=== PATIENT | male | born 1970 | race African-American/Black ===

== ENCOUNTER 2016-09-28 07:08 | Day surgery (SDC) | payer BC ==
[2016-09-28] VITALS (8 sets, daily range): BP systolic 110–192; BP diastolic 51–94; PULSE 55–68; RESP 18–20; TEMP 97.8–98.1; O2SAT 92–97
[~2016-09-28] VITALS: Ht 182.9 cm; Wt 90.9 kg
[2016-09-28] MEDS ORDERED: SODIUM CHLOR 0.9% 1000 ML IV SCH (08:15)
[2016-09-28] MEDS ORDERED: LIDOCAINE 1%/EPINEPHrine 1:100,000 SOLN 20 ML VIAL ONE (08:25)
[2016-09-28] MEDS ORDERED: fentaNYL CITRATE 250 MCG/5 ML AMP ONE (08:39)
[2016-09-28] MEDS ORDERED: MIDAZOLAM HCL 5 MG/5 ML VIAL ONE (08:39)
--- NOTE | 2016-09-28 09:43 | RADRPT ---
EXAM DATE/TIME: 09/28/2016 08:47 [place] COMPARISON: No previous studies available for comparison. INDICATIONS : Elevated liver functions SEDATION TIME: 30 minutes BIOPSY SITE: liver MEDICATION(S): 1.) 1.5 mg midazolam (Versed) IV 2.) 75 mcg fentanyl (Sublimaze) IV DEVICE(S): 1.) 18 gauge BioPince needle MEDICAL HISTORY : None. SURGICAL HISTORY : None. ENCOUNTER: Initial ACUITY: 1 day PAIN SCORE: 0/10 LOCATION: upper quadrant A total of one core specimen(s) were obtained and sent to the laboratory for pathologic evaluation. PROCEDURE: 1. CT guided liver biopsy. 2. Conscious sedation with continuous EKG and oximetry monitoring. 3. EKG and oximetry remained stable throughout the procedure. Prior to the procedure informed consent was obtained. Any appropriate prior imaging studies were rev iewed. Using automated exposure control and adjustment of the mA and/or kV according to patient size, radiat ion dose was kept as low as reasonably achievable to obtain optimal diagnostic quality images. The site was prepped in a sterile fashion. Full sterile technique was used, including cap, mask, fermín rile gloves and gown and a large sterile sheet. Hand hygiene and 2% chlorhexidine and/or betadine/al cohol prep was utilized per protocol for cutaneous antisepsis. The skin and subcutaneous tissues wer e infiltrated with local anesthetic solution. With CT guidance the previously identified target was localized. Biopsy was performed using the presc ribed needle as above. Adequate hemostasis was obtained with compression at the puncture site. Follow-up CT scan reveals no hemorrhage. The patient tolerated the procedure well and there were no complications. The patient was returned to the Radiology Outpatient Unit in stable condition. CONCLUSION: Uncomplicated CT guided biopsy. Xavi Mead MD on September 28, 2016 at 9:40 Board Certified Radiologist. This report was verified electronically.
[2016-09-28] MEDS ORDERED: HYDROmorphone HCL 2 MG TAB PO PRN (10:30)
== END 2016-09-28 13:30 | disposition home or self-care (01) ==
LOC: HRAD 07:08 → HRIP 07:09 → HRAD 13:30
PROVIDERS: ATTEND Hospitalist
DX: K76.0 Fatty (change of) liver, not elsewhere classified (principal); K75.9 Inflammatory liver disease, unspecified; R79.89 Other specified abnormal findings of blood chemistry
CPT/HCPCS: 47000; 77012; 88307; 88313; J2250; J3010